=== PATIENT | female | born 1950 | race Caucasian/White ===

== ENCOUNTER 2016-12-29 18:35 | Emergency (ER) | payer OTHER ==
[2016-12-29 18:42] VITALS: BP 117/93; PULSE 67; RESP 18; TEMP 99.1; O2SAT 96
--- NOTE | 2016-12-29 19:28 | EDPHY ---
H & P Stated Complaint: mechanical fall, L wrist pain Time Seen by Provider: 12/29/16 19:07 - Personal History Current Tetanus Diphtheria and Acellular Pertussis (TDAP): Yes - Medical/Surgical History Hx Asthma: No Hx Chronic Respiratory Disease: No Hx Diabetes: No Hx Cardiac Disease: No Hx Renal Disease: No Hx Cirrhosis: No Hx Alcoholism: No Hx HIV/AIDS: No Hx Splenectomy or Spleen Trauma: No Other PMH: A-fib, hypothyroid - Social History Smoking Status: Never smoked Constitutional: Initial Vital Signs Temperature (C) 37.3 C 12/29/16 18:39 Heart Rate 67 12/29/16 18:39 Respiratory Rate 18 12/29/16 18:39 Blood Pressure 117/93 H 12/29/16 18:39 O2 Sat (%) 96 12/29/16 18:39 O2 Delivery Mode Room Air Allergies/Adverse Reactions: amoxicillin trihydrate [From Augmentin] Allergy (Verified 12/28/11 17:10) ciprofloxacin [From Cipro] Allergy (Verified 12/29/16 18:38) ciprofloxacin HCl [From Cipro] Allergy (Verified 12/29/16 18:38) ibuprofen Allergy (Verified 04/21/15 19:23) potassium clavula *RETIRED-06/20/12 [From Augmentin] Allergy (Verified 12/28/11 17:10) AVALOX Allergy (Uncoded 12/28/11 17:10) Home Medications: Medication Instructions Recorded LEVOTHYROXINE SODIUM [Synthroid] 100 mcg PO 12/28/11 Liothyronine Sodium [Cytomel] 5 mcg PO DAILY 12/28/11 Plaquenil 200 mg (RX) 04/21/15 Eliquis 12/29/16 Hydrocodone/APAP 5/325 [Mullan 1 - 2 each PO Q4-6PRN PRN #20 tab 12/29/16 5/325] Medical Decision Making ED Course/Re-evaluation: CHIEF COMPLAINT: Left wrist injury HISTORY OF PRESENT ILLNESS: This patient is a 66 year old female who presents to the Emergency Department complaining of left wrist pain secondary to a mechanical fall earlier today. She reports that she tripped over a concrete curb and fell backwards, trapping her arm beneath her. She denies trauma to her head, neck, or back in the fall. Upon arrival, she describes her pain as mild to moderate and localized over the ulnar aspect of the left wrist. Her pain is exacerbated with movement. She denies any additional injuries. No pertinent medical history. REVIEW OF SYSTEMS: ROS is negative apart from what is listed in the HPI. PHYSICAL EXAM: General Appearance: Alert, no distress, talking appropriately, comfortable. Focused exam of the left wrist: Full ROM to the left wrist with some tenderness. No tenderness over the lateral radius. Skin: No lacerations, patricia, or abrasions. PAST MEDICAL HISTORY: Denies. PAST SURGICAL HISTORY: Non-contributory. SOCIAL HISTORY: at bedside. 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 DIAGNOSTICS/PROCEDURES/CRITICAL CARE TIME: IMAGING: Study: X-ray of the left wrist Indication: Pain, trauma Results: X-ray of the left wrist was obtained. The results of the study are: normal. The study was read by the radiologist, Dr. Kwabena Treviño. I viewed the images myself on the PACS system. IMAGING: Procedure: Splint placement. A thumb spica splint was applied to the left wrist by the tech. After application of the splint I returned and re-examined the patient. The splint was adequately immobilizing the joint and distal to the splint the patient's circulation and sensation was intact. DIFFERENTIAL DIAGNOSIS: The differential diagnosis for the patient's trauma included but was not limited to fracture, sprain, MEDICAL DECISION MAKING: This patient is a 66 year old female who presents with an injury to her left wrist obtained when she fell this afternoon. She does not present with any additional injuries. Her pain is reportedly mild with some exacerbation with movement. No significant tenderness on exam. She will be placed in a splint and discharged home in good condition with medication for pain. Departure - Departure Disposition: Home, Routine, Self-Care Clinical Impression: Left wrist sprain Qualifiers: Encounter type: initial encounter Qualified Code(s): S63.502A - Unspecified sprain of left wrist, initial encounter Condition: Good Instructions: Wrist Injury (ED) Additional Instructions: 1. Take Vicodin as prescribed, as needed for pain. 2. Rest and ice your injury until your pain subsides. We recommend keeping your splint on until your pain has completely resolved. 3. Follow-up with your primary care provider for reevaluation if your pain has not improved within 3-5 days. 4. Return to the Emergency Department if you experience severe swelling or pain , changes to the sensation in your hand, or other serious concerns. Referrals: Aletha Avalos MD [Primary Care Provider] - As per Instructions Prescriptions: Hydrocodone/APAP 5/325 [Mullan 5/325] 1 - 2 each PO Q4-6PRN PRN #20 tab PRN Reason: Pain, Moderate Report Scribed for: Brenton Hyde Report Scribed by: Sarika Allen Date of Report: 12/29/16 Time of Report: 19:11
[2016-12-29] MEDS ORDERED: HYDROCOD/APAP 5/325 PREPACK#6 BTL TAKEHOME ONE (19:31)
== END 2016-12-29 19:44 | disposition home or self-care (01) ==
DX: S63.502A Unspecified sprain of left wrist, initial encounter (principal); W01.0XXA Fall on same level from slipping, tripping and stumbling without subsequent striking against object, initial encounter; Y93.89 Activity, other specified
CPT/HCPCS: L3807

== ENCOUNTER 2017-03-07 08:56 | Emergency (ER) | payer OTHER ==
--- NOTE | 2017-03-07 09:08 | EDPHY ---
H & P Time Seen by Provider: 03/07/17 09:04 HPI/ROS: CHIEF COMPLAINT: Chest pain HISTORY OF PRESENT ILLNESS: The patient is a 66-year-old female with history of atrial fibrillation, on Eliquis, who presents with persistent chest pain and jaw numbness for the past 2 days. Her chest pain is localized to the left side and wraps around her left rib cage. Pain is currently a dull ache under her left breast. She continues to have numbness in her left jaw that radiates to her left neck. This morning the patient developed dizziness and became more concerned. No known exacerbating or alleviating factors. No associated symptoms. REVIEW OF SYSTEMS: A comprehensive 10 point review of systems is otherwise negative aside from elements mentioned in the history of present illness. Past Medical/Surgical History: Atrial fibrillation, Hypothyroid Social History: . Smoking Status: Never smoked Physical Exam: General Appearance: Alert, pleasant Eyes: Pupils equal and round, no conjunctival pallor or injection ENT, Mouth: Mucous membranes moist. Oral exam is normal, no dental or gum swelling. no TMJ tenderness. Neck: Normal inspection Respiratory: Lungs are clear to auscultation Cardiovascular: Regular rate and rhythm Gastrointestinal: Abdomen is soft and non-tender Neurological: A&O, nonfocal, normal gait Skin: Warm and dry, no rash Extremities: Nontender, no pedal edema Psychiatric: Mood and affect normal Constitutional: Initial Vital Signs Temperature (C) 35.5 C L 03/07/17 09:02 Heart Rate 65 03/07/17 09:02 Respiratory Rate 16 03/07/17 09:02 Blood Pressure 151/81 H 03/07/17 09:02 O2 Sat (%) 94 03/07/17 09:02 O2 Delivery Mode Room Air Allergies/Adverse Reactions: amoxicillin trihydrate [From Augmentin] Allergy (Verified 12/28/11 17:10) ciprofloxacin [From Cipro] Allergy (Verified 12/29/16 18:38) ciprofloxacin HCl [From Cipro] Allergy (Verified 12/29/16 18:38) ibuprofen Allergy (Verified 04/21/15 19:23) potassium clavula *RETIRED-06/20/12 [From Augmentin] Allergy (Verified 12/28/11 17:10) AVALOX Allergy (Uncoded 12/28/11 17:10) Home Medications: Medication Instructions Recorded LEVOTHYROXINE SODIUM [Synthroid] 100 mcg PO 12/28/11 Liothyronine Sodium [Cytomel] 5 mcg PO DAILY 12/28/11 Plaquenil 200 mg (RX) 04/21/15 Eliquis 12/29/16 Hydrocodone/APAP 5/325 [Gray 1 - 2 each PO Q4-6PRN PRN #20 tab 12/29/16 5/325] Medical Decision Making - Diagnostics EKG Interpretation: The 12 lead EKG was interpreted by myself. See hard copy and/or "tracemaster" electronic copy for interpretation: Normal rhythm, rate 67. No ST or T segment changes. Imaging Results: Chest x-ray independently reviewed by me reveals no acute disease. Imaging: I viewed and interpreted images myself ED Course/Re-evaluation: Patient with history of afib, on Eliquis, presents with persistent left chest pain and jaw numbness for the past 2 days. This morning she developed acute dizziness. The patient received 650mg Tylenol PO. Plan to check EKG, D-dimer, Troponin, and labs. Chest x-ray was ordered. Lab work is unremarkable. Chest x-ray is negative. D-dimer and troponin normal. This patient presents with atypical and prolonged chest pain. After careful consideration and evaluation, I find no evidence of acute coronary syndrome. The patient has pain greater than 48 hrs, normal EKG and normal studies. In addition, I feel that I can safely exclude pulmonary embolism, with normal vital signs, normal oxygen saturation and normal ddimer. In addition there is no evidence of pneumothorax, pneumonia, aortic dissection, TMJ syndrome. Possible cervical radiculopathy. I feel that she is safe and stable for discharge. Differential Diagnosis: Differential diagnosis includes though it is not limited to pneumonia, pneumothorax, pulmonary embolism, aortic dissection, pericarditis, acute coronary syndrome. - Data Points Laboratory Results: Laboratory Results 03/07/17 09:35 03/07/17 09:35 03/07/17 03/07/17 03/07/17 09:35 09:35 09:35 WBC 4.61 10^3/uL 10^3/uL (3.80-9.50) RBC 4.68 10^6/uL 10^6/uL (4.18-5.33) Hgb 14.8 g/dL g/dL (12.6-16.3) Hct 44.1 % % (38.0-47.0) MCV 94.2 fL fL (81.5-99.8) MCH 31.6 pg pg (27.9-34.1) MCHC 33.6 g/dL g/dL (32.4-36.7) RDW 13.6 % % (11.5-15.2) Plt Count 148 10^3/uL L 10^3/uL (150-400) MPV 11.2 fL fL (8.7-11.7) Neut % (Auto) 61.0 % % (39.3-74.2) Lymph % (Auto) 26.2 % % (15.0-45.0) Emanuel % (Auto) 10.0 % % (4.5-13.0) Eos % (Auto) 1.7 % % (0.6-7.6) Baso % (Auto) 0.7 % % (0.3-1.7) Nucleat RBC Rel Count 0.0 % % (0.0-0.2) Absolute Neuts (auto) 2.81 10^3/uL 10^3/uL (1.70-6.50) Absolute Lymphs (auto) 1.21 10^3/uL 10^3/uL (1.00-3.00) Absolute Monos (auto) 0.46 10^3/uL 10^3/uL (0.30-0.80) Absolute Eos (auto) 0.08 10^3/uL 10^3/uL (0.03-0.40) Absolute Basos (auto) 0.03 10^3/uL 10^3/uL (0.02-0.10) Absolute Nucleated RBC 0.00 10^3/uL 10^3/uL (0-0.01) Immature Gran % 0.4 % % (0.0-1.1) Immature Gran # 0.02 10^3/uL 10^3/uL (0.00-0.10) D-Dimer < 0.27 ug/mLFEU ug/mLFEU (0.00-0.50) Sodium 143 mEq/L mEq/L (134-144) Potassium 4.4 mEq/L mEq/L (3.5-5.2) Chloride 106 mEq/L mEq/L (97-110) Carbon Dioxide 28 mEq/l mEq/l (22-31) Anion Gap 9 mEq/L mEq/L (8-16) BUN 17 mg/dL mg/dL (7-23) Creatinine 0.8 mg/dL mg/dL (0.6-1.0) Estimated GFR > 60 Glucose 95 mg/dL mg/dL (70-100) Calcium 9.4 mg/dL mg/dL (8.5-10.4) Troponin I < 0.012 ng/mL ng/mL (0-0.034) NT-Pro-B Natriuret Pep 123 pg/mL pg/mL (0-125) Medications Given: Discontinued Medications Acetaminophen (Tylenol) 650 mg PO EDNOW ONE Stop: 03/07/17 09:28 Last Admin: 03/07/17 09:40 Dose: 650 mg Departure - Departure Disposition: Home, Routine, Self-Care Clinical Impression: Chest pain Qualifiers: Chest pain type: unspecified Qualified Code(s): R07.9 - Chest pain, unspecified Condition: Good Instructions: Chest Pain (ED) Additional Instructions: Please call the 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 Return to the emergency department with new or worse symptoms. Referrals: Aletha Avalos MD [Primary Care Provider] - As per Instructions Kwabena Marie MD [Medical Doctor] - As per Instructions Report Scribed for: Yoon Cardona Report Scribed by: Deyanira Mcmanus Date of Report: 03/07/17 Time of Report: 09:08 Physician Review and Approval Statement: 03/07/17 09:08 Portions of this note were transcribed by a regional medical director. I personally performed the history, physical exam, and medical decision-making; and confirmed the accuracy of the information in the transcribed note.
--- NOTE | 2017-03-07 09:09 | CPEKG ---
Heart Rate: 67 RR Interval: 896 P-R Interval: 140 QRSD Interval: 92 QT Interval: 412 QTC Interval: 435 P Hoffman: 41 QRS Hoffman: -19 T Wave Hoffman: 5 EKG Severity - OTHERWISE NORMAL ECG - EKG Impression: SINUS RHYTHM EKG Impression: BORDERLINE LEFT AXIS DEVIATION Electronically Signed By: Yoon Cardona 07-Mar-2017 15:02:01
[2017-03-07 09:17] VITALS: O2SAT 94
[2017-03-07] MEDS ORDERED: ACETAMINOPHEN 325 MG TAB PO ONE (09:27)
[2017-03-07 09:45] LABS: % IMMATURE GRANULYOCYTES 0.4 % (0.0-1.1); ABSOLUTE IMMATURE GRANULOCYTES 0.02 10^3/uL (0.00-0.10); ADD DIFF? NO; ADD MORPH? NO; ADD SCAN? NO; ATYPICAL LYMPHOCYTE FLAG 0 (0-99); FRAGMENT RBC FLAG 0 (0-99); HEMATOCRIT 44.1 % (38.0-47.0); HEMOGLOBIN 14.8 g/dL (12.6-16.3); LEFT SHIFT FLG 0 (0-99); LIPEMIA HEMOLYSIS FLAG 80 (0-99); MEAN CELL HEMOGLOBIN 31.6 pg (27.9-34.1); MEAN CELL HEMOGLOBIN CONCENTR. 33.6 g/dL (32.4-36.7); MEAN CELL VOLUME 94.2 fL (81.5-99.8); MEAN PLATELET VOLUME 11.2 fL (8.7-11.7); PLATELET CLUMPS FLAG 0 (0-99); PLATELET COUNT 148 10^3/uL (150-400); RED BLOOD CELL COUNT 4.68 10^6/uL (4.18-5.33); RED CELL DISTRIBUTION WIDTH 13.6 % (11.5-15.2)
[2017-03-07 10:03] LABS: ANION GAP 9 mEq/L (8-16); CARBON DIOXIDE 28 mEq/l (22-31); CHLORIDE 106 mEq/L (97-110); CREATININE 0.8 mg/dL (0.6-1.0); GLUCOSE 95 mg/dL (70-100); POTASSIUM 4.4 mEq/L (3.5-5.2); SODIUM 143 mEq/L (134-144)
[2017-03-07 10:04] LABS: CALCIUM 9.4 mg/dL (8.5-10.4); GLOMERULAR FILTRATION RATE > 60
[2017-03-07 10:16] LABS: TROPONIN I < 0.012 ng/mL (0-0.034)
[2017-03-07 10:36] VITALS: BP 130/74; PULSE 80; RESP 14; TEMP 98.4
== END 2017-03-07 10:35 | disposition home or self-care (01) ==
DX: R07.9 Chest pain, unspecified (principal); Z79.01 Long term (current) use of anticoagulants

== ENCOUNTER → 2017-05-04 | Outpatient (CLI) | payer OTHER | LOC: FIMAGING 16:07 | PROVIDERS: ATTEND Internal Medicine | DX: Z12.31 Encounter for screening mammogram for malignant neoplasm of breast (principal) | CPT/HCPCS: G0202 ==

== ENCOUNTER → 2018-03-01 | Outpatient (CLI) | payer OTHER, MEDICARE ==
--- NOTE | 2018-03-04 09:03 | CPEKG ---
Heart Rate: 152 RR Interval: 395 QRSD Interval: 70 QT Interval: 296 QTC Interval: 471 QRS Whitakers: 28 T Wave Whitakers: -84 EKG Severity - ABNORMAL ECG - EKG Impression: ATRIAL FIBRILLATION EKG Impression: REPOLARIZATION ABNORMALITY, PROB RATE RELATED Electronically Signed By: Dave Sheikh 05-Mar-2018 07:02:36
== END ==
LOC: BHFA 08:30
PROVIDERS: ATTEND Internal Medicine Cardiovascular Disease
DX: I48.91 Unspecified atrial fibrillation (principal); R00.2 Palpitations

== ENCOUNTER → 2018-03-03 | Outpatient (CLI) | payer OTHER, MEDICARE | LOC: BHFA 13:15 | PROVIDERS: ATTEND Internal Medicine Cardiovascular Disease | DX: I48.91 Unspecified atrial fibrillation (principal) ==

== ENCOUNTER → 2018-03-08 | Outpatient (CLI) | payer OTHER, MEDICARE | LOC: BMCIMAGING 14:00 | PROVIDERS: ATTEND Podiatrist Foot & Ankle Surgery | DX: M77.32 Calcaneal spur, left foot (principal); M77.31 Calcaneal spur, right foot ==

== ENCOUNTER → 2018-03-31 | Outpatient (CLI) | payer OTHER, MEDICARE | LOC: BHFA 11:15 | PROVIDERS: ATTEND Internal Medicine Cardiovascular Disease | DX: I48.91 Unspecified atrial fibrillation (principal) ==

== ENCOUNTER → 2018-04-07 | Outpatient (CLI) | payer OTHER, MEDICARE | DX: I48.91 Unspecified atrial fibrillation (principal) ==

== ENCOUNTER → 2018-04-08 | Outpatient (CLI) | payer OTHER, MEDICARE | LOC: FCPNEURO 21:00 | PROVIDERS: ATTEND Psychiatry & Neurology Sleep Medicine | DX: G47.31 Primary central sleep apnea (principal); G47.33 Obstructive sleep apnea (adult) (pediatric); G47.61 Periodic limb movement disorder ==

== ENCOUNTER → 2018-05-05 | Outpatient (CLI) | payer OTHER, MEDICARE | LOC: FIMAGING 09:04 | PROVIDERS: ATTEND Internal Medicine | DX: Z12.31 Encounter for screening mammogram for malignant neoplasm of breast (principal) ==

== ENCOUNTER → 2018-08-16 | Outpatient (CLI) | payer OTHER, MEDICARE | LOC: BMCIMAGING 15:07 | PROVIDERS: ATTEND Internal Medicine Rheumatology | DX: M77.32 Calcaneal spur, left foot (principal) ==